=== PATIENT | female | born 1960 | race Caucasian/White ===

== ENCOUNTER 2023-01-24 11:39 | Outpatient (CLI) | payer BC | END 2023-01-24 11:40 | disposition home or self-care (01) | LOC: BURRAD 11:39 | PROVIDERS: ATTEND Family Medicine | DX: M46.1 Sacroiliitis, not elsewhere classified (principal); M47.816 Spondylosis without myelopathy or radiculopathy, lumbar region | CPT/HCPCS: 72202 ==